=== PATIENT | male | born 1970 | race Caucasian/White ===

== ENCOUNTER 2018-09-19 12:20 | Inpatient (IN) | payer MEDICAID ==
[~2018-09-19] VITALS: Ht 188 cm; Wt 81.2 kg
[2018-09-19] MEDS ORDERED: FEE PK DOSING 1 MIN EA MC ONE (12:24)
[2018-09-19 13:18] LABS: BASOPHILS # (AUTO) 0.1 /CMM (0.0-0.2); BASOPHILS % (AUTO) 0.4 % (0.0-2.0); EOSINOPHILS % (AUTO) 0.1 % (0.0-6.0); HEMATOCRIT 33 % (39-51); HEMOGLOBIN 10.5 g/dL (13.5-17.5); LYMPHOCYTES # (AUTO) 1.4 /CMM (0.8-4.8); LYMPHOCYTES % (AUTO) 9.8 % (20.0-44.0); MEAN CORPUSCULAR HGB CONC 32 g/dl (31.0-36.0); MEAN CORPUSCULAR VOLUME 80 fL (80-96); MONOCYTES % (AUTO) 6.8 % (2.0-12.0); NEUTROPHILS # (AUTO) 12.1 /CMM (1.8-8.9); NEUTROPHILS % (AUTO) 82.9 % (43.0-81.0); PLATELET COUNT (AUTO) 293 /CMM (150-450); RED BLOOD CELL COUNT(AUTO) 4.07 MIL/uL (4.5-6.0); WHITE BLOOD COUNT (AUTO) 14.6 K/uL (4.3-11.0)
--- NOTE | 2018-09-19 13:18 | NUR ---
[address] C/O BACK PAIN AND LEFT HIP PAIN SINCE WEDNESDAY. RR EVEN & UNLABORED. PT ASLEEP EASILY AWAKEN BY VERBAL STIMULI. AAOX3, VSS. DENIES CP, SOB, DIZZINESS, N/V AT THIS TIME. PT SEEN & EVAL'D BY DR. MCELROY & WILL CONT TO MONITOR.
[2018-09-19 13:25] LABS: CALCIUM, SERUM 8.7 mg/dL (8.5-10.1); CARBON DIOXIDE 26 mmol/L (21-32); CHLORIDE 97 mmol/L (98-107); CREATININE 0.7 mg/dL (0.6-1.3); GLUCOSE 166 mg/dL (74-106); POTASSIUM 3.6 mmol/L (3.5-5.1); SODIUM SERUM 135 mmol/L (136-145); UREA NITROGEN, BLOOD 14 mg/dL (7-18)
[2018-09-19 13:31] LABS: ALANINE AMINOTRANSFERASE 33 U/L (12-78); ALBUMIN 2.1 g/dL (3.4-5.0); ALCOHOL, BLOOD < 3 mg/dL (0-0); ALKALINE PHOSPHATASE 100 U/L (46-116); ASPARTATE AMINOTRANSFERASE 24 U/L (15-37); BILIRUBIN,DIRECT 0.1 mg/dL (0.0-0.2); BILIRUBIN,TOTAL 0.3 mg/dL (0.2-1.0); TOTAL PROTEIN, SERUM 6.5 g/dL (6.4-8.2)
--- NOTE | 2018-09-19 13:45 | NUR ---
PT TO CT VIA [facility].
[2018-09-19] MEDS ORDERED: IOHEXOL-300 100 ML VIAL IV ONE (13:53)
[2018-09-19] MEDS ORDERED: IV NS 0.9% 250 ML IV ONE (13:53)
[2018-09-19] MEDS ORDERED: CT SWABBABLE VALVE TRANS SET 1 EA INFUS.SET MC ONE (13:53)
[2018-09-19] MEDS ORDERED: IV NS 0.9% 1,000 ML BAG IV ONE (14:00)
--- NOTE | 2018-09-19 14:26 | NUR ---
PT BACK FROM CT. IV INFUSING WELL, NO S/S OF SWELLING/REDNESS ON IV SITE. PT STABLE, NAD NOTED AT THIS TIME & WILL CONT TO MONITOR.
[2018-09-19] MEDS ORDERED: ONDANSETRON HCL/PF 4 MG/2 ML VIAL IVP ONE (14:30)
[2018-09-19] MEDS ORDERED: MORPHINE SULFATE INJ 2 MG/ML DISP.SYRIN IV ONE ×2 (14:30→20:00)
[2018-09-19] MEDS ORDERED: VANCOMYCIN 1 GM in IV D5W 250 ML IV ONE (14:30)
[2018-09-19] MEDS ORDERED: PIPERACILLIN /TAZOBACTAM 3.375 G in IV D5W 50 ML IV ONE (14:30)
[2018-09-19] MEDS ORDERED: MORPHINE SULFATE INJ 4 MG/ML DISP.SYRIN ONE (14:45)
[2018-09-19] MEDS ORDERED: ONDANSETRON HCL/PF 4 MG/2 ML VIAL ONE (14:45)
[2018-09-19 14:54] LABS: APPEARANCE,URINE Hazy (CLEAR); BILIRUBIN,URINE Negative (NEGATIVE); BLOOD, URINE Trace-intact Ery/uL (NEGATIVE); COLOR,URINE Yellow (YELLOW); KETONES,URINE Negative (NEGATIVE); LEUKOCYTE ESTERASE ,URINE Trace (NEGATIVE); NITRITE, URINE Negative (NEGATIVE); PH,URINE 6.5 (5.0-8.0); PROTEIN,URINE 30 mg/dl (NEGATIVE); UGLUCOSE Negative (NEGATIVE)
[2018-09-19 15:01] LABS: BACTERIA,URINE Rare /HPF (None Seen); SQUAMOUS EPITHELIAL CELL,UR Few /HPF (None Seen); WBC,URINE 20-50 /HPF (0-3)
[2018-09-19] MEDS ORDERED: METRONIDAZOLE 500MG/ NS 100ML 500 MG in PREMIX 1 EA IV SCH (17:00)
--- NOTE | 2018-09-19 17:19 | NUR ---
Patient is resting comfortably in bed with eyes closed. Easily aroused. VSS
--- NOTE | 2018-09-19 18:08 | NUR ---
REPORT GIVEN TO CHRISTIAN VILLARREAL FOR CONT OF CARE.
[2018-09-19 18:45] VITALS: BP 123/75
[2018-09-19 19:15] VITALS: BP 121/75
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
[2018-09-19 20:00] VITALS: BP 121/75
[2018-09-19] MEDS: IV NS 0.9% 1,000 ML IV PRN (20:49)
[2018-09-19] MEDS: HYDROCODONE/APAP 5/325MG 1 EACH TABLET PO PRN (22:11)
[2018-09-19] MEDS: PIPERACILLIN /TAZOBACTAM 3.375 G in IV D5W 50 ML IV SCH (23:07)
[2018-09-19] MEDS: VANCOMYCIN 1 GM in IV D5W 250 ML IV SCH (23:47)
[2018-09-20] VITALS: BP 126/71
[2018-09-20] MEDS: clonazePAM 1 MG TABLET PO PRN ×2 (03:19→23:33)
[2018-09-20] MEDS: HYDROCODONE/APAP 5/325MG 1 EACH TABLET PO PRN ×3 (03:22→23:33)
[2018-09-20] MEDS: PIPERACILLIN /TAZOBACTAM 3.375 G in IV D5W 50 ML IV SCH ×2 (05:21→11:33)
[2018-09-20 06:54] LABS: CALCIUM, SERUM 8.9 mg/dL (8.5-10.1); CREATININE 0.7 mg/dL (0.6-1.3); POTASSIUM 4.3 mmol/L (3.5-5.1)
--- NOTE | 2018-09-20 07:30 | NUR ---
RN OPENING NOTES RECEIVED PATIENT IN BED SLEEPING COMFORTABLY. EASILY AROUSABLE. PATIENT ALERT AND ORIENTED X3. NO PAIN OR ACUTE DISTRESS AT THIS TIME. RESPIRATION EVEN AND UNLABORED. SKIN IS DRY WARM TO TOUCH. IV ACCESS INTACT AND PATENT. FLUSHING WELL. ALL NEEDS ANTICIPATED. KEPT CLEAN AND DRY. CALL LIGHT WITHIN REACHED. BED LOCKED AND IN LOWEST POSITION. PLAN OF CARE DISCUSSED. WILL CONTINUE TO MONITOR.
[2018-09-20 08:00] VITALS: BP 120/68
[2018-09-20] MEDS: VANCOMYCIN 1 GM in IV D5W 250 ML IV SCH ×2 (08:10→16:17)
[2018-09-20] MEDS: IV NS 0.9% 1,000 ML IV PRN (11:33)
--- NOTE | 2018-09-20 13:00 | NUR ---
RN NOTES PATIENT WAS PICKED UP TO DO CT/US PERCUTANEOUS ABSCESS DRAINAGE. PATIENT LEFT THE UNIT IN STABLE CONDITION. AWAITING FOR PATIENT RETURN.
[2018-09-20 14:00] VITALS: BP 124/69
[2018-09-20] MEDS ORDERED: FENTANYL PF 250MCG/5ML AMPUL IV ONE (14:00)
[2018-09-20] MEDS ORDERED: NALOXONE PREFILLED SYRINGE 2 MG/2 ML SYRINGE IV ONE (14:00)
[2018-09-20] MEDS ORDERED: MIDAZOLAM HCL 5MG/ML VIAL 25 MG/5 ML VIAL IV ONE (14:00)
[2018-09-20] MEDS ORDERED: IV NS 0.9% 500 ML IV ONE (14:19)
--- NOTE | 2018-09-20 15:09 | NUR ---
PNEUMATIC JACK OPERATOR RECEIVED PT IN CT SCAN ROOM PAX4 NO DISTRESS NOTED VS STABLE TO @1445 SEDATION 1450 PROCEDURE 1451 TOTAL OF 2MG VERSED GIVEN IV ORDERED BY DR. MANZANARES. NO DISTRESS NOTED DURING PROCEDURE VS REMAINED STABLE PT AOX4 MOVED BACK TO ROOM 115-1 UNDER STABLE CONDITION.
--- NOTE | 2018-09-20 16:30 | NUR ---
RN NOTES PATIENT WAS TAKEN BACK TO THE UNIT AFTER THE PROCEDURE. PATIENT REMAINS IN STABLE CONDITION. WILL CONTINUE TO MONITOR.
[2018-09-20] MEDS: PIPERACILLIN /TAZOBACTAM 3.375 G in IV D5W 100 ML IV SCH (17:35)
--- NOTE | 2018-09-20 18:30 | NUR ---
RN CLOSING NOTES PATIENT IN BED SLEEPING COMFORTABLY. EASILY ARSOUSABLE. NO PAIN OR ACUTE DISTRESS AT THIS TIME. RESPIRATION EVEN AND UNLABORED. SKIN IS DRY WARM TO TOUCH. IV ACCESS ON RIGHT WRIST INTACT AND PATENT. FLUSHING WELL. PATIENT WAS ABLE TO TOLERATE MEALS AND MEDS WELL. NO ADVERSE REACTIONS AT THIS TIME. PATIENT WAS ALSO ABLE TO TOLERATE THE PROCEDURE WELL. NOTED WITH BROWNISH DRAINAGE. ALL NEEDS ANTICIPATED. KEPT CLEAN AND DRY. CALL LIGHT WITHIN REACHED. BED LOCKED AND IN LOWEST POSITION. SAFETY MEASURES OBSERVED. WILL CONTINUE TO MONITOR. ENDORSED TO PM NURSE FOR CANDELARIA.
[2018-09-20 20:00] VITALS: BP 118/76
[2018-09-20] MEDS: VANCOMYCIN 1.25 GM in IV D5W 500 ML IV SCH (23:17)
[2018-09-21] VITALS: BP 108/66
[2018-09-21] MEDS: PIPERACILLIN /TAZOBACTAM 3.375 G in IV D5W 100 ML IV SCH ×3 (01:42→17:45)
[2018-09-21 04:00] VITALS: BP 118/73
--- NOTE | 2018-09-21 04:00 | NUR ---
MS RN NOTE RIGHT WRIST IV NOTED TO BE INFILTRATED , IV REMOVED NEW 20 G RFA PLACED NO S/S OF INFECTION/ INFILTRATION NOTED ON RFA.
[2018-09-21 06:48] LABS: BASOPHILS # (AUTO) 0.1 /CMM (0.0-0.2); BASOPHILS % (AUTO) 0.7 % (0.0-2.0); EOSINOPHILS % (AUTO) 0.7 % (0.0-6.0); HEMATOCRIT 35 % (39-51); HEMOGLOBIN 11.5 g/dL (13.5-17.5); LYMPHOCYTES # (AUTO) 1.7 /CMM (0.8-4.8); LYMPHOCYTES % (AUTO) 17.8 % (20.0-44.0); MEAN CORPUSCULAR HGB CONC 33 g/dl (31.0-36.0); MEAN CORPUSCULAR VOLUME 79 fL (80-96); MONOCYTES # (AUTO) 0.8 /CMM (0.1-1.30); MONOCYTES % (AUTO) 8.3 % (2.0-12.0); NEUTROPHILS % (AUTO) 72.5 % (43.0-81.0); PLATELET COUNT (AUTO) 353 /CMM (150-450); RED BLOOD CELL COUNT(AUTO) 4.42 MIL/uL (4.5-6.0); WHITE BLOOD COUNT (AUTO) 9.6 K/uL (4.3-11.0)
[2018-09-21 07:04] LABS: CALCIUM, SERUM 8.6 mg/dL (8.5-10.1); CREATININE 0.7 mg/dL (0.6-1.3); MAGNESIUM 2.2 mg/dL (1.8-2.4); PHOSPHORUS 4.8 mg/dL (2.5-4.9); POTASSIUM 3.9 mmol/L (3.5-5.1)
--- NOTE | 2018-09-21 07:16 | NUR ---
MS RN NOTE PATIENT TOLERATED THE NIGHT WELL NO S/S OF DISTRESS AT THIS TIME. POC ENDORSED TO AM FOR CANDELARIA. SAFETY PRECAUTIONS IN PLACE CARE RENDERED ORDERED.
--- NOTE | 2018-09-21 07:20 | NUR ---
INITIAL: RECEIVED PATIENT IN BED SLEEPING COMFORTABLY. EASILY AROUSABLE. PATIENT ALERT AND ORIENTED X3. NO PAIN OR ACUTE DISTRESS AT THIS TIME. RESPIRATION EVEN AND UNLABORED. SKIN IS DRY WARM TO TOUCH. IV ACCESS INTACT AND PATENT. FLUSHING WELL. PT CLEAN AND DRY. CALL LIGHT WITHIN REACHED. BED LOCKED AND IN LOWEST POSITION. PLAN OF CARE DISCUSSED. WILL CONTINUE TO MONITOR.
[2018-09-21 08:00] VITALS: BP 125/81
[2018-09-21] MEDS: VANCOMYCIN 1.25 GM in IV D5W 500 ML IV SCH ×2 (08:44→16:41)
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
[2018-09-21 16:00] VITALS: BP 112/77
[2018-09-21] MEDS: LACTOBACILLUS RHAMNOSUS GG 1 EACH CAP.SPRINK PO SCH (17:45)
--- NOTE | 2018-09-21 17:54 | NUR ---
closing PATIENT IN BED watching TV COMFORTABLY. EASILY ARSOUSABLE. NO PAIN OR ACUTE DISTRESS AT THIS TIME. RESPIRATION EVEN AND UNLABORED. SKIN IS DRY WARM TO TOUCH. IV ACCESS ON RIGHT WRIST INTACT AND PATENT. FLUSHING WELL. PATIENT WAS ABLE TO TOLERATE MEALS AND MEDS WELL. NO ADVERSE REACTIONS AT THIS TIME. PATIENT WAS ALSO ABLE TO TOLERATE THE PROCEDURE WELL. NOTED WITH BROWNISH DRAINAGE. ALL NEEDS ANTICIPATED. KEPT CLEAN AND DRY. CALL LIGHT WITHIN REACHED. BED LOCKED AND IN LOWEST POSITION. SAFETY MEASURES OBSERVED. WILL CONTINUE TO MONITOR. ENDORSED TO PM NURSE FOR CONTINUITY OF CARE
--- NOTE | 2018-09-21 19:10 | NUR ---
MS RN NOTES RECEIVED PT IN BED AWAKE AND ABLE TO MAKE NEEDS KNOWN. PT A/O X3. RESPIRATIONS EVEN AND UNLABORED WITH NOT S/S OF ACUTE DISTRESS OR SOB NOTED. PT DENIES PAIN AT THIS TIME. IV 20G IN RFA RUNNING NS @100 ML/HR. SKIN IS DRY WARM TO TOUCH. SAFETY MEASURES IN PLACE WITH BED IN LOWEST LOCKED POSITION WITH SIDE RAILS UP X2. CALL LIGHT WITHIN REACH. WILL CONTINUE TO MONITOR.
[2018-09-21] MEDS: HYDROCODONE/APAP 5/325MG 1 EACH TABLET PO PRN (22:33)
[2018-09-22] VITALS: BP 118/78
[2018-09-22] MEDS: VANCOMYCIN 1.25 GM in IV D5W 500 ML IV SCH ×2 (00:01→07:53)
[2018-09-22] MEDS: clonazePAM 1 MG TABLET PO PRN ×2 (00:09→21:23)
[2018-09-22] MEDS: PIPERACILLIN /TAZOBACTAM 3.375 G in IV D5W 100 ML IV SCH ×3 (02:07→18:02)
[2018-09-22 06:54] LABS: BASOPHILS % (AUTO) 0.5 % (0.0-2.0); EOSINOPHILS % (AUTO) 0.9 % (0.0-6.0); HEMATOCRIT 37 % (39-51); LYMPHOCYTES # (AUTO) 1.9 /CMM (0.8-4.8); LYMPHOCYTES % (AUTO) 21.8 % (20.0-44.0); MEAN CORPUSCULAR HGB CONC 32 g/dl (31.0-36.0); MEAN CORPUSCULAR VOLUME 80 fL (80-96); MONOCYTES # (AUTO) 0.7 /CMM (0.1-1.30); MONOCYTES % (AUTO) 8.4 % (2.0-12.0); NEUTROPHILS % (AUTO) 68.4 % (43.0-81.0); PLATELET COUNT (AUTO) 397 /CMM (150-450); RED BLOOD CELL COUNT(AUTO) 4.66 MIL/uL (4.5-6.0); WHITE BLOOD COUNT (AUTO) 8.7 K/uL (4.3-11.0)
--- NOTE | 2018-09-22 06:56 | NUR ---
MS RN NOTES PT IN BED ASLEEP BUT EASILY AWOKEN VERBALLY OR BY TOUCH. PT A/O X 3 AND ABLE TO MAKE NEEDS KNOWN. RESPIRATIONS EVEN AND UNLABORED WITH NOT S/S OF ACUTE DISTRESS OR SOB NOTED THROUGHOUT SHIFT. PT DENIES PAIN AT THIS TIME. IV 20G IN RFA RUNNING NS @100 ML/HR. SKIN IS WARM AND DRY TO TOUCH. SAFETY MEASURES IN PLACE WITH BED IN LOWEST LOCKED POSITION WITH SIDE RAILS UP X2. CALL LIGHT WITHIN REACH. WILL ENDORSE TO ONCOMING NURSE FOR CANDELARIA.
--- NOTE | 2018-09-22 07:30 | NUR ---
RN MS NOTES PT IN BED, SLEEPING, NO SIGN OF PAIN OR DISCOMFORT, BREATHING PATTERN NORMAL, CALL LIGHT WITHIN REACH, IV FLUIDS INFUSING WELL, KEPT WARM AND COMFORTABLE IN BED.
[2018-09-22 08:00] VITALS: BP 117/77
[2018-09-22 08:06] LABS: BAND % (MANUAL) 3 % (0.0-5.0); EOSINOPHILS % (MANUAL) 1 % (0-4); LYMPHOCYTES % (MANUAL) 29 % (16-48); MONOCYTES % (MANUAL) 9 % (0-11.0); NEUTROPHILS % (MANUAL) 58 (42-76)
[2018-09-22] MEDS: LACTOBACILLUS RHAMNOSUS GG 1 EACH CAP.SPRINK PO SCH ×2 (08:13→16:57)
[2018-09-22] MEDS: HYDROCODONE/APAP 5/325MG 1 EACH TABLET PO PRN ×3 (08:16→23:00)
[2018-09-22 08:50] LABS: CALCIUM, SERUM 9.5 mg/dL (8.5-10.1); CREATININE 0.8 mg/dL (0.6-1.3); MAGNESIUM 2.3 mg/dL (1.8-2.4); PHOSPHORUS 4.7 mg/dL (2.5-4.9); POTASSIUM 4.8 mmol/L (3.5-5.1)
--- NOTE | 2018-09-22 11:39 | NUR ---
RN MS NOTES PT IN BED, RESTING, NO COMPLAINT OF PAIN, NOT IN DISTRESS, IV FLUIDS INFUSING WELL, PT PLACED ON ISOLATION PRECAUTIONS FOR MRSA BODY FLUID ASPIRATED FROM HIP, PT AND MD AWARE, CALL LIGHT WITHIN REACH, NEEDS ATTENDED.
[2018-09-22 16:02] VITALS: BP 99/54
[2018-09-22] MEDS: VANCOMYCIN 1 GM in IV D5W 250 ML IV SCH (16:58)
--- NOTE | 2018-09-22 18:20 | NUR ---
RN MS NOTES PT IN BED, AWAKE, ALERT AND ORIENTED, WATCHING TV, NO COMPLAINT OF PAIN, NOT IN DISTRESS, IV FLUIDS INFUSING WELL, CALL LIGHT WITHIN REACH, COMPLIANT WITH MEDICATIONS BUT REFUSES PM CARE, WITH GOOD PO INTAKE, HEMOVAC AT LEFT HIP INTACT, DRAINING MINIMALLY, NEEDS ATTENDED.
--- NOTE | 2018-09-22 19:30 | NUR ---
RN MS NOTES PT IN BED, AWAKE, ALERT AND ORIENTED, WATCHING TV, NO COMPLAINT OF PAIN, NOT IN DISTRESS, IV FLUIDS INFUSING WELL, CALL LIGHT WITHIN REACH, COMPLIANT WITH MEDICATIONS BUT REFUSES PM CARE, WITH GOOD PO INTAKE, HEMOVAC AT LEFT HIP INTACT, DRAINING MINIMALLY WILL CONTINUE TO MONITER
[2018-09-22] MEDS: IV NS 0.9% 1,000 ML IV PRN (22:58)
[2018-09-23] VITALS: BP 102/66
[2018-09-23] MEDS: VANCOMYCIN 1 GM in IV D5W 250 ML IV SCH ×3 (00:24→16:46)
[2018-09-23] MEDS: PIPERACILLIN /TAZOBACTAM 3.375 G in IV D5W 100 ML IV SCH ×3 (01:29→16:51)
[2018-09-23 07:08] LABS: BASOPHILS # (AUTO) 0.1 /CMM (0.0-0.2); BASOPHILS % (AUTO) 0.6 % (0.0-2.0); EOSINOPHILS % (AUTO) 0.8 % (0.0-6.0); HEMATOCRIT 38 % (39-51); HEMOGLOBIN 12.4 g/dL (13.5-17.5); LYMPHOCYTES # (AUTO) 2.2 /CMM (0.8-4.8); LYMPHOCYTES % (AUTO) 25.9 % (20.0-44.0); MEAN CORPUSCULAR HGB CONC 33 g/dl (31.0-36.0); MEAN CORPUSCULAR VOLUME 79 fL (80-96); MONOCYTES # (AUTO) 0.6 /CMM (0.1-1.30); MONOCYTES % (AUTO) 6.5 % (2.0-12.0); NEUTROPHILS # (AUTO) 5.7 /CMM (1.8-8.9); NEUTROPHILS % (AUTO) 66.2 % (43.0-81.0); PLATELET COUNT (AUTO) 419 /CMM (150-450); RED BLOOD CELL COUNT(AUTO) 4.79 MIL/uL (4.5-6.0); WHITE BLOOD COUNT (AUTO) 8.6 K/uL (4.3-11.0)
[2018-09-23 07:11] LABS: CALCIUM, SERUM 8.8 mg/dL (8.5-10.1); CREATININE 0.9 mg/dL (0.6-1.3); MAGNESIUM 2.3 mg/dL (1.8-2.4); PHOSPHORUS 3.9 mg/dL (2.5-4.9); POTASSIUM 4.3 mmol/L (3.5-5.1)
[2018-09-23 08:00] VITALS: BP 115/61
[2018-09-23] MEDS: LACTOBACILLUS RHAMNOSUS GG 1 EACH CAP.SPRINK PO SCH ×2 (08:56→16:46)
[2018-09-23] MEDS: HYDROCODONE/APAP 5/325MG 1 EACH TABLET PO PRN (09:29)
[2018-09-23] MEDS ORDERED: SULF1TAB48 PO (10:56)
[2018-09-23] MEDS ORDERED: CLON1TAB12 PO (10:56)
[2018-09-23] MEDS ORDERED: HYDR-3972 PO (10:56)
[2018-09-23] MEDS ORDERED: LACT1CAP72 PO (10:56)
[2018-09-23 12:27] LABS: EOSINOPHILS % (MANUAL) 1 % (0-4); LYMPHOCYTES % (MANUAL) 28 % (16-48); MONOCYTES % (MANUAL) 7 % (0-11.0); NEUTROPHILS % (MANUAL) 64 (42-76)
[2018-09-23 16:00] VITALS: BP 119/85
[2018-09-23] MEDS ORDERED: VANC1PLA10 IV (18:26)
--- NOTE | 2018-09-23 19:31 | NUR ---
Gave handoff report to Ale Cabral RN. Josh Tiwari RN
--- NOTE | 2018-09-23 19:35 | NUR ---
MS/RN OPENING NOTES PT RECEIVED AWAKE, A/OX3, WATCHING TV COMFORTABLY IN BED. ON ROOM AIR, BREATHING EVEN AND UNLABORED. DENIES SOB AND PAIN AT THIS TIME. IV TO RFA PATENT AND INTACT CURRENTLY RUNNING IVF ABX. NO NEEDS EXPRESSED AT THIS TIME. IN NO ACUTE RESPIRATORY DISTRESS.HOB ELEVATED. DRESSING TO LEFT HIP/BUTTOCK C/D/I, DRAINING TO GRAVITY, COLLECTION BAG CONTAINS APPROX 300CC OF [place] FLUID AND TUBING CONTAINS SANGUINOUS FLUID. AWAITING FOR AMBULANCE DIRECTOR FRANCHISE SALES FOR DISCHARGE TO [facility]. DISCHARGE PAPERWORK COMPLETED. BED IN LOW/LOCKED POSITION WITH CALL LIGHT IN REACH. BILAT. UPPER SIDE RAILS IN PLACE. HOB ELEVATED. WILL CONTINUE TO MONITOR
[2018-09-23 20:00] VITALS: BP 129/78
--- NOTE | 2018-09-23 20:35 | NUR ---
PT DISCHARGED ALL BELONGINGS AND DISCHARGE PAPERWORK SENT WITH PT. IV AND ID BANDS REMOVED. DRAIN TO LEFT HIP/BUTTOCK IN PLACE, CAREFUL HANDLING ENCOURAGED. LEFT UNIT IN STABLE CONDITION WITH AMBULANCE VIA GURNEY.
== END 2018-09-23 22:18 | DRG 383 ==
LOC: ER 12:23 → MEDSG1 17:27 → EDBD 17:27 → MEDSG1 09-22 08:41
PROVIDERS: ADMIT Nurse Practitioner Acute Care; ATTEND Student in an Organized Health Care Education/Training Program
PROC: 0K9P3ZZ Drainage of Left Hip Muscle, Percutaneous Approach (ICD-10-PCS; principal; 2018-09-20)
DX: L02.31 Cutaneous abscess of buttock (principal); G92 Toxic encephalopathy; E44.1 Mild protein-calorie malnutrition; E87.1 Hypo-osmolality and hyponatremia; B95.62 Methicillin resistant Staphylococcus aureus infection as the cause of diseases classified elsewhere; D72.829 Elevated white blood cell count, unspecified; D63.8 Anemia in other chronic diseases classified elsewhere; S79.912A Unspecified injury of left hip, initial encounter; L03.317 Cellulitis of buttock; Z59.0 Homelessness; N39.0 Urinary tract infection, site not specified; B95.5 Unspecified streptococcus as the cause of diseases classified elsewhere; Z68.23 Body mass index [BMI] 23.0-23.9, adult; F17.210 Nicotine dependence, cigarettes, uncomplicated; K52.9 Noninfective gastroenteritis and colitis, unspecified; V03.99XA Pedestrian with other conveyance injured in collision with car, pick-up truck or van, unspecified whether traffic or nontraffic accident, initial encounter; Y92.89 Other specified places as the place of occurrence of the external cause; K40.20 Bilateral inguinal hernia, without obstruction or gangrene, not specified as recurrent; S80.12XA Contusion of left lower leg, initial encounter; F12.10 Cannabis abuse, uncomplicated
CPT/HCPCS: 36415; 70450-TC; 71260-TC; 72125-TC; 75989; 75989-TC; 80048-TC; 80076-TC; 80202-TC; 80305; 81000-TC; 83605-TC; 83735-TC; 84100-TC; 84484-TC; 85025-TC; 85730-TC; 86850-TC; 87040-TC; 87070-TC; 87086-TC; 89051-TC; 97116-TC; 97530-TC; A4216; G0378; G0480; J2250; J2270; J2310; J2405; J2543; J3010; J3370; J3490; J7030; J7040; J7050; J7060; Q9967

== ENCOUNTER 2018-10-14 14:05 | Emergency (ER) | payer MEDICAID ==
[~2018-10-14] VITALS: Ht 165.1 cm; Wt 74.8 kg
[~2018-10-14 14:05] MED LIST: CLON1TAB12 PO; HYDR-3972 PO; LACT1CAP72 PO; VANC1PLA10 IV
[2018-10-14 14:19] VITALS: BP 141/87
--- NOTE | 2018-10-14 14:20 | NUR ---
BIB EMS FOR WOUND CHECK TO L [facility]. PATIENT A/OX4, BREATHING EVEN AND UNLABORED. HERE FOR REMOVAL OF WOUND DRAINAGE. KEPT COMFORTABLE. WILL MONITOR
--- NOTE | 2018-10-14 14:55 | NUR ---
WOUND DRAINAGE FROM LEFT BUTTOCK REMOVED BY DR. LOPEZ. COVERED WITH 2X2 GAUZE AND A BANDAGE.
--- NOTE | 2018-10-14 15:07 | NUR ---
[facility] TRIP # [id number] ETA 20 MINS.
--- NOTE | 2018-10-14 16:07 | NUR ---
REPORT GIVEN TO SUPERVISOR ROLLER SHOP, PATIENT IN STABLE CONDITION. Patient discharged to [facility] in stable condition. Written and verbal after care instructions given. Patient verbalizes understanding of instruction.
== END 2018-10-14 16:10 | disposition home or self-care (01) ==
LOC: ER 14:07
DX: L02.416 Cutaneous abscess of left lower limb (principal); E87.1 Hypo-osmolality and hyponatremia; D72.829 Elevated white blood cell count, unspecified; F17.200 Nicotine dependence, unspecified, uncomplicated

== ENCOUNTER 2021-06-03 15:51 | Emergency (ER) | payer MEDICAID ==
[~2021-06-03] VITALS: Ht 167.6 cm; Wt 77.1 kg
--- NOTE | 2021-06-03 16:06 | NUR ---
[id number] STREETS, PER REPAIR TECH PT'S FRIEND CALLED FOR NOTED "DRY BLOOD" TO HIS NOSE. NO ACTIVE BLEEDING. PT STS "BEEN COUGHING OUT BLOOD"
--- NOTE | 2021-06-03 16:06 | NUR ---
PT [id number] FROM THE [address]RE[address], PER KIER TENDER REPORT, PATIENT FRIENDD CALLED 911 S/P NOTICING PT HAVING NOSEBLEED THIS MORNING. PER PARAMEDICS, THEY NOTICE DRIED BLOOD TO NASAL AREA BUT HAS NO ACTIVE BLEEDING INHALATION THERAPY AIDE. PT IS AWAKE STATES HE WAS "COUGHING OUT BLOOD." ALSO C/O WEAKNESS. STABLE VITALS. AWAITING MD LEMOS.
--- NOTE | 2021-06-03 16:33 | NUR ---
DR CORONEL AT BEDSIDE FOR EVAL.
[2021-06-03] MEDS ORDERED: OXYMETAZOLINE HCL NASAL SPRAY 30 ML BOTTLE NS ONE ×2 (17:00→17:28)
[2021-06-03] MEDS ORDERED: SODI126M NS (17:01)
--- NOTE | 2021-06-03 17:23 | NUR ---
Patient discharged to home in stable condition. Written and verbal after care instructions given. Patient verbalizes understanding of instruction.
[2021-06-03 17:54] VITALS: BP 147/76
== END 2021-06-03 17:54 | disposition home or self-care (01) ==
LOC: ER 15:53
DX: R04.0 Epistaxis (principal); F17.200 Nicotine dependence, unspecified, uncomplicated